=== PATIENT | male | born 1985 | race Caucasian/White ===

== ENCOUNTER 2020-06-17 17:04 | Inpatient (IN) ==
[2020-06-17] MEDS ORDERED: THIAMINE HCL 200 MG in SODIUM CHLORIDE 0.9% 50 ML IV STA (17:45)
[2020-06-17] MEDS ORDERED: PANTOprazole 40 MG TAB PO STA (17:45)
[2020-06-17] MEDS ORDERED: SODIUM CHLORIDE 0.9% 1000ML 1,000 ML IV SCH (17:45)
[2020-06-17 17:54] LABS: Basophils # (auto) 0.04 K/uL (0-0.2); Basophils % (auto) 0.6 %; Eosinophils # (auto) 0.06 K/uL (0-0.5); Eosinophils % (auto) 0.8 %; Hemoglobin 16.4 g/dL (14.0-18.0); Immature Granulocytes # (auto) 0.01 K/uL (0.00-0.02); Immature Granulocytes % (auto) 0.1 %; Lymphocytes # (auto) 2.48 K/uL (1.2-3.4); Lymphocytes % (auto) 35.1 %; Mean Corpuscular Hemoglobin 32.3 pg (25-34); Mean Corpuscular Hgb Conc 36.4 g/dL (32-36); Mean Corpuscular Volume 88.8 fL (80-100); Monocytes # (auto) 0.56 K/uL (0.11-0.59); Monocytes % (auto) 7.9 %; Neutrophils # (auto) 3.91 K/uL (1.4-6.5); Neutrophils % (auto) 55.5 %; Platelet Count 326 K/uL (130-400); RDW Coefficient of Variation 12.5 % (11.5-14.5); RDW Standard Deviation 40.1 fL (36.4-46.3); Red Blood Count 5.07 M/uL (4.7-6.1); White Blood Count 7.06 K/uL (4.8-10.8)
--- NOTE | 2020-06-17 17:54 | Emergency Department Note ---
Impression & Plan Alcohol withdrawal syndrome, Alcoholic intoxication ED Provider Note NAME: CAMILLA MARTIN AGE: 35 SEX: M : 1985 ARRIVES VIA: Walk-In INFORMANT: Patient, family member ED PROVIDER(S): Max Bull DO CHIEF COMPLAINT: Alcohol detox request HPI: The patient is a 35-year-old male who presented to the emergency department for an evaluation of alcohol detox request. The patient is a history of chronic alcoholism. The patient has had a history of drinking a significant amount of hard liquor, vodka, over the course of the last week. He does have a history of alcoholism in the past. He went through detox approximately 1 year ago. He was therefore 5 weeks and then started drinking as soon as he got out of detox. He department today with family member requesting alcohol detox. He does have significant depression as well as thoughts of suicidal ideation. He has no specific plan. He has had no nausea or vomiting. He said no trauma. He states that he is only been drinking vodka and denies any other toxic alcohol use. The patient has had no fever or cough. He denies having any recent traveling or exposure to COVID-19. ROS: See above HPI for pertinent positives & negatives. A total of 10 systems reviewed and were otherwise negative. PAST MEDICAL HISTORY: See Below PAST SURGICAL HISTORY: See Below FAMILY HISTORY: See Below SOCIAL HISTORY: See Below HOME MEDICATIONS: See Below ALLERGIES: See Below VITALS: See Below PHYSICAL EXAMINATION: GENERAL: The patient is awake and alert. He does appear somewhat intoxicated. EYES: The conjunctivae are injected bilaterally. The pupils are round and reactive. EARS, NOSE, MOUTH AND THROAT: The nose is without any evidence of any deformity. NECK: The neck is nontender and supple. RESPIRATORY: Normal respiratory effort is noted there is no evidence of wheezing rhonchi or rales CARDIOVASCULAR: Tachycardic rate with regular rhythm was noted. There was no definite murmur. GASTROINTESTINAL: The abdomen is soft. Abdomen is nontender. MUSCULOSKELETAL/EXTREMITIES: There is no evidence of gross deformity full range of motion is noted in the hips and shoulders. SKIN: There is no obvious evidence of any rash. There are no petechiae, pallor or cyanosis noted. NEUROLOGIC: Patient is awake alert and oriented x3 strength is symmetric patellar reflexes are 2+ bilaterally PSYCH: The patient makes poor eye contact for most the evaluation. His affect is flat. He is currently admitting to suicidal ideation. He keeps saying that he just wants to drink himself to . MEDICAL DECISION MAKING: The patient is a 35-year-old male who presented to the emergency department with family members for an evaluation of alcohol abuse as well as alcohol withdrawal. The patient has had a history of alcohol problems in the past. He did go through detox 1 year ago but unfortunately right back to drinking alcohol again. The patient had no focal neurologic deficits. There was no history of trauma. The patient was treated with IV fluids IV thiamine as well as Protonix in the emergency department. He was also given Ativan when he started to have some early symptoms that could be consistent with withdrawal. [facility] The patient would like to stop drinking at this time unfortunately detox is not an option. I do not feel the patient would be safe for discharge given his likelihood for either relapsing into drinking again or having withdrawal if he does not continue to hold alcohol use. He was feeling much better on subsequent reevaluation. Triage Nursing notes reviewed. Prior medical records reviewed Vital Signs: reviewed and remarkable for tachycardia. Differential diagnosis: Alcohol intoxication, toxicologic, infection, hypoglycemia, electrolyte abnormalities, cardiac sources, intracerebral event, neurologic, trauma, as well as other pathologies. ER treatment provided: See below Diagnostics interpreted by me: ECG: EKG was obtained in the emergency department. My interpretation is normal sinus rhythm at 91 bpm. There was no ectopy. There was no acute ST segment abnormalities noted. No previous tracing was available. Cardiac Monitoring: An order was placed for continuous cardiac monitoring. The monitor shows a rate of 98 bpm with sinus rhythm. Laboratory studies: As stated above and show below. Imaging studies: See below Consultation(s): I discussed this case with Dr. Carney who [facility] He will evaluate the patient in the emergency department for further management and disposition. Past Med/Surg History Medical History Alcohol abuse Social History (Updated 06/17/20 @ 17:51 by Max Bull DO) Smoking Status: Current every day smoker Tobacco Type: Cigarettes and Smokeless Tobacco (Dip or Chew) Hx Alcohol Use: Yes Alcohol type: hard liquor Alcohol Intake Frequency: 4 or More x per/Week Hx Substance Use: No Feels Safe at Home: Yes Allergies Allergies Allergy/AdvReac Type Severity Reaction Status Date / Time nut - unspecified Allergy Unknown Unverified 06/17/20 19:59 Home Meds Home Medications Medication Instructions Recorded Confirmed No Known Home Medications 06/17/20 06/17/20 Results & Data (ED) Vital Signs Vital Signs - 24 hr 06/17/20 17:08 06/17/20 17:32 06/17/20 17:47 Pulse Rate 116 H 113 H Pulse Rate from SpO2 Sensor 111 H Respiratory Rate 19 18 Blood Pressure 129/75 126/87 Blood Pressure Mean 93 100 Pulse Oximetry 95 96 Oxygen Delivery Method Room Air Room Air Sepsis Recent Fever Within 48 Hours No Sepsis New/Unexplained Change in Mental Status N/A Sepsis Action Taken by Nursing No Action Required 06/17/20 18:00 06/17/20 18:30 06/17/20 19:00 Pulse Rate 88 94 H 89 Pulse Rate from SpO2 Sensor 96 H 92 H Respiratory Rate 12 19 16 Blood Pressure 120/75 103/65 117/83 Blood Pressure Mean 95 76 98 Pulse Oximetry 95 97 Oxygen Delivery Method Sepsis Recent Fever Within 48 Hours Sepsis New/Unexplained Change in Mental Status Sepsis Action Taken by Nursing 06/17/20 19:30 06/17/20 20:18 06/17/20 20:30 Pulse Rate 102 H 105 H 108 H Pulse Rate from SpO2 Sensor 101 H 101 H 110 H Respiratory Rate 17 12 22 Blood Pressure 125/95 127/86 122/73 Blood Pressure Mean 103 102 87 Pulse Oximetry 95 93 94 Oxygen Delivery Method Room Air Room Air Sepsis Recent Fever Within 48 Hours Sepsis New/Unexplained Change in Mental Status Sepsis Action Taken by Intermediate Medications Current Medication List: was personally reviewed by me Laboratory Data Attestation: I reviewed the patient's lab results. Result diagrams: 06/17/20 17:30 06/17/20 17:30 Lab Results 06/17/20 06/17/20 06/17/20 Range/Units 17:26 17:26 17:30 WBC 7.06 (4.8-10.8) K/uL RBC 5.07 (4.7-6.1) M/uL Hgb 16.4 (14.0-18.0) g/dL Hct 45.0 (42-52) % MCV 88.8 (80-100) fL MCH 32.3 (25-34) pg MCHC 36.4 H (32-36) g/dL RDW Std Deviation 40.1 (36.4-46.3) fL RDW Coeff of Bessie 12.5 (11.5-14.5) % Plt Count 326 (130-400) K/uL MPV 9.0 (7.4-10.4) fL Immature Gran % (Auto) 0.1 % Neut % (Auto) 55.5 % Lymph % (Auto) 35.1 % [place] % (Auto) 7.9 % Eos % (Auto) 0.8 % Baso % (Auto) 0.6 % Neut # (Auto) 3.91 (1.4-6.5) K/uL Lymph # (Auto) 2.48 (1.2-3.4) K/uL [place] # (Auto) 0.56 (0.11-0.59) K/uL Eos # (Auto) 0.06 (0-0.5) K/uL Baso # (Auto) 0.04 (0-0.2) K/uL Immature Gran # (Auto) 0.01 (0.00-0.02) K/uL PT (9.0-12.0) Seconds INR (0.9-1.1) APTT (21.0-31.0) Seconds PTT Ratio Sodium (136-145) mmol/L Potassium (3.5-5.1) mmol/L Chloride (98-107) mmol/L Carbon Dioxide (21-32) mmol/L Anion Gap (3-11) BUN (7-18) mg/dl Creatinine (0.6-1.4) mg/dl Est Cr Clr Drug Dosing Est GFR ( Amer) Est GFR (Non-Af Amer) BUN/Creatinine Ratio (10-20) Glucose (70-99) mg/dl Osmolality (280-300) mOsm/kg Calcium (8.5-10.1) mg/dl Magnesium (1.8-2.4) mg/dl Total Bilirubin (0.2-1) mg/dl AST (15-37) U/L ALT (12-78) U/L Alkaline Phosphatase (45-117) U/L Troponin I (0-0.045) ng/ml Total Protein (6.4-8.2) gm/dl Albumin (3.4-5.0) gm/dl Globulin (2.5-4.0) gm/dl Albumin/Globulin Ratio (0.9-2) Lipase (73-393) U/L Urine Color [place] Urine Appearance Clear (Clear) Urine pH 6.0 (4.5-7.5) Ur Specific [place] 1.017 (1.000-1.030) Urine Protein Trace H (Negative) Urine Glucose (UA) Negative (Negative) Urine Ketones Trace H (Negative) Urine Blood Trace H (Negative) Urine Nitrite Negative (Negative) Urine Bilirubin Negative (Negative) Urine Urobilinogen Negative (Negative) Ur Leukocyte Esterase Negative (Negative) Urine WBC (Auto) 1-5 (0-5) /hpf Urine RBC (Auto) 0-4 (0-4) /hpf U Hyaline Cast (Auto) 0 (0-5) /lpf U Epithel Cells (Auto) 0-5 (0-5) /lpf Urine Bacteria (Auto) Negative (Negative) Salicylates (2.8-20) mg/dl Urine Opiates Screen Neg (Neg) Ur Methadone, Qual Neg (Neg) Acetaminophen (10-30) ug/ml Urine Barbiturates Neg (Neg) Ur Phencyclidine (PCP) Neg (Neg) U Amphetamin/Meth Scrn Neg (Neg) MDMA (Ecstasy) Screen Neg (Neg) U Benzodiazepines Scrn Neg (Neg) Ur Cocaine Metabolite Neg (Neg) U Marijuana (THC) Screen Neg (Neg) Ethyl Alcohol mg/dL (0-3) mg/dl COVID-19 Eval Order SARS-CoV-2, RNA, NAAT (NEGATIVE) 06/17/20 06/17/20 06/17/20 Range/Units 17:30 17:30 17:30 WBC (4.8-10.8) K/uL RBC (4.7-6.1) M/uL Hgb (14.0-18.0) g/dL Hct (42-52) % MCV (80-100) fL MCH (25-34) pg MCHC (32-36) g/dL RDW Std Deviation (36.4-46.3) fL RDW Coeff of Bessie (11.5-14.5) % Plt Count (130-400) K/uL MPV (7.4-10.4) fL Immature Gran % (Auto) % Neut % (Auto) % Lymph % (Auto) % [place] % (Auto) % Eos % (Auto) % Baso % (Auto) % Neut # (Auto) (1.4-6.5) K/uL Lymph # (Auto) (1.2-3.4) K/uL [place] # (Auto) (0.11-0.59) K/uL Eos # (Auto) (0-0.5) K/uL Baso # (Auto) (0-0.2) K/uL Immature Gran # (Auto) (0.00-0.02) K/uL PT 10.3 (9.0-12.0) Seconds INR 1.0 (0.9-1.1) APTT 25.8 (21.0-31.0) Seconds PTT Ratio 0.9 Sodium 137 (136-145) mmol/L Potassium 4.3 (3.5-5.1) mmol/L Chloride 99 (98-107) mmol/L Carbon Dioxide 30 (21-32) mmol/L Anion Gap 8.0 (3-11) BUN 16 (7-18) mg/dl Creatinine 0.94 (0.6-1.4) mg/dl Est Cr Clr Drug Dosing Not Reportable Est GFR ( Amer) 123.0 Est GFR (Non-Af Amer) 106.1 BUN/Creatinine Ratio 16.7 (10-20) Glucose 80 (70-99) mg/dl Osmolality (280-300) mOsm/kg Calcium 8.6 (8.5-10.1) mg/dl Magnesium 2.5 H (1.8-2.4) mg/dl Total Bilirubin 1.0 (0.2-1) mg/dl AST 51 H (15-37) U/L ALT 48 (12-78) U/L Alkaline Phosphatase 73 (45-117) U/L Troponin I < 0.015 (0-0.045) ng/ml Total Protein 8.2 (6.4-8.2) gm/dl Albumin 4.4 (3.4-5.0) gm/dl Globulin 3.8 (2.5-4.0) gm/dl Albumin/Globulin Ratio 1.2 (0.9-2) Lipase 125 (73-393) U/L Urine Color Urine Appearance (Clear) Urine pH (4.5-7.5) Ur Specific [place] (1.000-1.030) Urine Protein (Negative) Urine Glucose (UA) (Negative) Urine Ketones (Negative) Urine Blood (Negative) Urine Nitrite (Negative) Urine Bilirubin (Negative) Urine Urobilinogen (Negative) Ur Leukocyte Esterase (Negative) Urine WBC (Auto) (0-5) /hpf Urine RBC (Auto) (0-4) /hpf U Hyaline Cast (Auto) (0-5) /lpf U Epithel Cells (Auto) (0-5) /lpf Urine Bacteria (Auto) (Negative) Salicylates < 1.7 L (2.8-20) mg/dl Urine Opiates Screen (Neg) Ur Methadone, Qual (Neg) Acetaminophen < 2 L (10-30) ug/ml Urine Barbiturates (Neg) Ur Phencyclidine (PCP) (Neg) U Amphetamin/Meth Scrn (Neg) MDMA (Ecstasy) Screen (Neg) U Benzodiazepines Scrn (Neg) Ur Cocaine Metabolite (Neg) U Marijuana (THC) Screen (Neg) Ethyl Alcohol mg/dL (0-3) mg/dl COVID-19 Eval Order SARS-CoV-2, RNA, NAAT (NEGATIVE) 06/17/20 06/17/20 06/17/20 Range/Units 17:30 17:59 18:20 WBC (4.8-10.8) K/uL RBC (4.7-6.1) M/uL Hgb (14.0-18.0) g/dL Hct (42-52) % MCV (80-100) fL MCH (25-34) pg MCHC (32-36) g/dL RDW Std Deviation (36.4-46.3) fL RDW Coeff of Bessie (11.5-14.5) % Plt Count (130-400) K/uL MPV (7.4-10.4) fL Immature Gran % (Auto) % Neut % (Auto) % Lymph % (Auto) % [place] % (Auto) % Eos % (Auto) % Baso % (Auto) % Neut # (Auto) (1.4-6.5) K/uL Lymph # (Auto) (1.2-3.4) K/uL [place] # (Auto) (0.11-0.59) K/uL Eos # (Auto) (0-0.5) K/uL Baso # (Auto) (0-0.2) K/uL Immature Gran # (Auto) (0.00-0.02) K/uL PT (9.0-12.0) Seconds INR (0.9-1.1) APTT (21.0-31.0) Seconds PTT Ratio Sodium (136-145) mmol/L Potassium (3.5-5.1) mmol/L Chloride (98-107) mmol/L Carbon Dioxide (21-32) mmol/L Anion Gap (3-11) BUN (7-18) mg/dl Creatinine (0.6-1.4) mg/dl Est Cr Clr Drug Dosing Est GFR ( Amer) Est GFR (Non-Af Amer) BUN/Creatinine Ratio (10-20) Glucose (70-99) mg/dl Osmolality 381 H* (280-300) mOsm/kg Calcium (8.5-10.1) mg/dl Magnesium (1.8-2.4) mg/dl Total Bilirubin (0.2-1) mg/dl AST (15-37) U/L ALT (12-78) U/L Alkaline Phosphatase (45-117) U/L Troponin I (0-0.045) ng/ml Total Protein (6.4-8.2) gm/dl Albumin (3.4-5.0) gm/dl Globulin (2.5-4.0) gm/dl Albumin/Globulin Ratio (0.9-2) Lipase (73-393) U/L Urine Color Urine Appearance (Clear) Urine pH (4.5-7.5) Ur Specific [place] (1.000-1.030) Urine Protein (Negative) Urine Glucose (UA) (Negative) Urine Ketones (Negative) Urine Blood (Negative) Urine Nitrite (Negative) Urine Bilirubin (Negative) Urine Urobilinogen (Negative) Ur Leukocyte Esterase (Negative) Urine WBC (Auto) (0-5) /hpf Urine RBC (Auto) (0-4) /hpf U Hyaline Cast (Auto) (0-5) /lpf U Epithel Cells (Auto) (0-5) /lpf Urine Bacteria (Auto) (Negative) Salicylates (2.8-20) mg/dl Urine Opiates Screen (Neg) Ur Methadone, Qual (Neg) Acetaminophen (10-30) ug/ml Urine Barbiturates (Neg) Ur Phencyclidine (PCP) (Neg) U Amphetamin/Meth Scrn (Neg) MDMA (Ecstasy) Screen (Neg) U Benzodiazepines Scrn (Neg) Ur Cocaine Metabolite (Neg) U Marijuana (THC) Screen (Neg) Ethyl Alcohol mg/dL 344.9 H (0-3) mg/dl COVID-19 Eval [id number] SARS-CoV-2, RNA, NAAT (NEGATIVE) 06/17/20 Range/Units 18:20 WBC (4.8-10.8) K/uL RBC (4.7-6.1) M/uL Hgb (14.0-18.0) g/dL Hct (42-52) % MCV (80-100) fL MCH (25-34) pg MCHC (32-36) g/dL RDW Std Deviation (36.4-46.3) fL RDW Coeff of Bessie (11.5-14.5) % Plt Count (130-400) K/uL MPV (7.4-10.4) fL Immature Gran % (Auto) % Neut % (Auto) % Lymph % (Auto) % [place] % (Auto) % Eos % (Auto) % Baso % (Auto) % Neut # (Auto) (1.4-6.5) K/uL Lymph # (Auto) (1.2-3.4) K/uL [place] # (Auto) (0.11-0.59) K/uL Eos # (Auto) (0-0.5) K/uL Baso # (Auto) (0-0.2) K/uL Immature Gran # (Auto) (0.00-0.02) K/uL PT (9.0-12.0) Seconds INR (0.9-1.1) APTT (21.0-31.0) Seconds PTT Ratio Sodium (136-145) mmol/L Potassium (3.5-5.1) mmol/L Chloride (98-107) mmol/L Carbon Dioxide (21-32) mmol/L Anion Gap (3-11) BUN (7-18) mg/dl Creatinine (0.6-1.4) mg/dl Est Cr Clr Drug Dosing Est GFR ( Amer) Est GFR (Non-Af Amer) BUN/Creatinine Ratio (10-20) Glucose (70-99) mg/dl Osmolality (280-300) mOsm/kg Calcium (8.5-10.1) mg/dl Magnesium (1.8-2.4) mg/dl Total Bilirubin (0.2-1) mg/dl AST (15-37) U/L ALT (12-78) U/L Alkaline Phosphatase (45-117) U/L Troponin I (0-0.045) ng/ml Total Protein (6.4-8.2) gm/dl Albumin (3.4-5.0) gm/dl Globulin (2.5-4.0) gm/dl Albumin/Globulin Ratio (0.9-2) Lipase (73-393) U/L Urine Color Urine Appearance (Clear) Urine pH (4.5-7.5) Ur Specific [place] (1.000-1.030) Urine Protein (Negative) Urine Glucose (UA) (Negative) Urine Ketones (Negative) Urine Blood (Negative) Urine Nitrite (Negative) Urine Bilirubin (Negative) Urine Urobilinogen (Negative) Ur Leukocyte Esterase (Negative) Urine WBC (Auto) (0-5) /hpf Urine RBC (Auto) (0-4) /hpf U Hyaline Cast (Auto) (0-5) /lpf U Epithel Cells (Auto) (0-5) /lpf Urine Bacteria (Auto) (Negative) Salicylates (2.8-20) mg/dl Urine Opiates Screen (Neg) Ur Methadone, Qual (Neg) Acetaminophen (10-30) ug/ml Urine Barbiturates (Neg) Ur Phencyclidine (PCP) (Neg) U Amphetamin/Meth Scrn (Neg) MDMA (Ecstasy) Screen (Neg) U Benzodiazepines Scrn (Neg) Ur Cocaine Metabolite (Neg) U Marijuana (THC) Screen (Neg) Ethyl Alcohol mg/dL (0-3) mg/dl COVID-19 Eval Order SARS-CoV-2, RNA, NAAT NEGATIVE (NEGATIVE) Administered Medications Discontinued Medications Sodium Chloride (Nss 1000ml) 1,000 mls @ 999 mls/hr IV [id number] MATHEUS Stop: 06/17/20 18:45 Last Infusion: 06/17/20 19:00 Dose: 0 mls/hr Documented by: [id number] Admin: 06/17/20 18:00 Dose: 999 mls/hr Documented by: [id number] Thiamine HCl 200 mg/ Sodium (Chloride) 52 mls @ 208 mls/hr IV NOW STA Stop: 06/17/20 17:59 Last Infusion: 06/17/20 18:31 Dose: 0 mls/hr Documented by: [id number] Admin: 06/17/20 18:15 Dose: 208 mls/hr Documented by: [id number] Lorazepam (Ativan) 1 mg in 2 mls @ 2 mls/min IV NOW STA Stop: 06/17/20 19:02 Last Admin: 06/17/20 19:09 Dose: 2 mls/min Documented by: [id number] Pantoprazole Sodium (Pantoprazole 40 Mg Tab) 40 mg PO NOW STA Stop: 06/17/20 17:46 Last Admin: 06/17/20 18:10 Dose: 40 mg Documented by: [id number] Blood Pressure Blood Pressure Findings: Normal blood pressure Discharge Plan Visit Data Chief Complaint: Detox Request Stated Complaint: alcohol intoxication, detox ED Provider: Max Bull Discharge Problem: Alcohol withdrawal syndrome, Alcoholic intoxication Patient Disposition: Being Evaluated by Hospitalist Condition: Good Forms Stand Alone Forms: [facility] [employer], Suicide Prevention Resources Prescriptions Prescriptions: No Action No Known Home Medications RF: 0 Referrals Referrals: PCP,NO [Primary Care Provider] -
[2020-06-17 17:59] LABS: Partial Thromboplastin Ratio 0.9; Partial Thromboplastin Time 25.8 Seconds (21.0-31.0); Prothrombin Time 10.3 Seconds (9.0-12.0)
[2020-06-17 18:02] LABS: Blood Urea Nitrogen 16 mg/dl (7-18); Carbon Dioxide 30 mmol/L (21-32); Chloride 99 mmol/L (98-107); Potassium 4.3 mmol/L (3.5-5.1); Sodium 137 mmol/L (136-145)
[2020-06-17 18:03] LABS: Alanine Aminotransferase 48 U/L (12-78); Albumin Level 4.4 gm/dl (3.4-5.0); Aspartate Aminotransferase 51 U/L (15-37); BUN Creatinine Ratio 16.7 (10-20); Calcium 8.6 mg/dl (8.5-10.1); Est GFR (Non-African American) 106.1; Glucose 80 mg/dl (70-99); Lipase 125 U/L (73-393); Magnesium 2.5 mg/dl (1.8-2.4)
[2020-06-17 18:08] LABS: Albumin Globulin Ratio 1.2 (0.9-2); Alkaline Phosphatase 73 U/L (45-117); Globulin 3.8 gm/dl (2.5-4.0); Total Protein 8.2 gm/dl (6.4-8.2); Troponin I < 0.015 ng/ml (0-0.045)
[2020-06-17 18:21] LABS: Acetaminophen < 2 ug/ml (10-30); Salicylate < 1.7 mg/dl (2.8-20)
[2020-06-17 18:44] LABS: Appearance Urine Clear (Clear); Bacteria Urine Automated Negative (Negative); Bilirubin Urine Negative (Negative); Blood Urine Trace (Negative); Cast Urine Automated 0 /lpf (0-5); Color Urine Orange; Epithelial Cell Urine Auto 0-5 /lpf (0-5); Glucose Urine UA Negative (Negative); Ketones Urine Trace (Negative); Leukocyte Esterase Urine Negative (Negative); Nitrite Urine Negative (Negative); Protein Urine Trace (Negative); RBC Urine Automated 0-4 /hpf (0-4); Specific Gravity Urine 1.017 (1.000-1.030); Urobilinogen Urine Negative (Negative)
[2020-06-17 18:59] LABS: Amphetamines+Metham, Urine Neg (Neg); Barbiturates, Urine Neg (Neg); Benzodiazepine, Urine Neg (Neg); Cocaine, Urine Neg (Neg); MDMA (Ecstacy), Urine Neg (Neg); Methadone, Urine Neg (Neg); Opiate, Urine Neg (Neg); Phencyclidine, Urine Neg (Neg)
[2020-06-17] MEDS ORDERED: LORazepam 1 MG/2 ML VIAL IV STA (19:01)
[2020-06-17] MEDS ORDERED: GABAPENTIN 600 MG TAB PO ONE (22:10)
[2020-06-17] MEDS ORDERED: LORazepam 3 MG/6 ML VIAL IV PRN (22:10)
[2020-06-17] MEDS ORDERED: LORazepam 1 MG/2 ML VIAL IV PRN (22:10)
[2020-06-17] MEDS ORDERED: ONDANSETRON INJ 2 MG/ML 2 ML VIAL IV PRN (22:10)
[2020-06-17] MEDS ORDERED: LORazepam 2 MG/4 ML VIAL IV PRN (22:10)
[2020-06-17] MEDS ORDERED: ACETAMINOPHEN 325 MG TAB PO PRN (22:10)
[2020-06-17] MEDS ORDERED: GABAPENTIN 1200MG ALCOHOL WITHDRAWAL LOAD PO STA (22:10)
[2020-06-17] MEDS ORDERED: ATIVAN IV ALCOHOL WITHDRAWL IV PRN (22:10)
[2020-06-17] MEDS: SODIUM CHLORIDE 0.9% 1000ML 1,000 ML IV SCH (22:13)
[2020-06-17 22:29] LABS: Phosphorus 3.4 mg/dl (2.5-4.9)
[2020-06-17] MEDS: THIAMINE HCL 100 MG TAB PO SCH (22:52)
[2020-06-17] MEDS: FOLIC ACID 1 MG TAB PO SCH (22:53)
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
[2020-06-18] MEDS: GABAPENTIN 600 MG TAB PO SCH ×3 (03:22→21:34)
[2020-06-18] MEDS: SODIUM CHLORIDE 0.9% 1000ML 1,000 ML IV SCH ×2 (06:25→13:21)
[2020-06-18 07:42] LABS: Basophils # (auto) 0.03 K/uL (0-0.2); Basophils % (auto) 0.5 %; Eosinophils # (auto) 0.16 K/uL (0-0.5); Eosinophils % (auto) 2.4 %; Hematocrit (blood only) 38.6 % (42-52); Hemoglobin 13.8 g/dL (14.0-18.0); Immature Granulocytes # (auto) 0.01 K/uL (0.00-0.02); Immature Granulocytes % (auto) 0.2 %; Lymphocytes # (auto) 1.39 K/uL (1.2-3.4); Mean Corpuscular Hemoglobin 32.2 pg (25-34); Mean Corpuscular Hgb Conc 35.8 g/dL (32-36); Mean Platelet Volume 9.1 fL (7.4-10.4); Monocytes # (auto) 0.56 K/uL (0.11-0.59); Monocytes % (auto) 8.4 %; Neutrophils # (auto) 4.48 K/uL (1.4-6.5); Neutrophils % (auto) 67.5 %; Platelet Count 239 K/uL (130-400); RDW Coefficient of Variation 12.7 % (11.5-14.5); RDW Standard Deviation 41.7 fL (36.4-46.3); Red Blood Count 4.29 M/uL (4.7-6.1); White Blood Count 6.63 K/uL (4.8-10.8)
[2020-06-18 08:16] LABS: Albumin Level 3.6 gm/dl (3.4-5.0); BUN Creatinine Ratio 18.3 (10-20); Calcium 8.4 mg/dl (8.5-10.1); Est GFR (African American) 110.1; Magnesium 2.1 mg/dl (1.8-2.4); Potassium 4.2 mmol/L (3.5-5.1)
[2020-06-18 08:23] LABS: Albumin Globulin Ratio 1.2 (0.9-2); Globulin 2.9 gm/dl (2.5-4.0); Phosphorus 1.8 mg/dl (2.5-4.9); Total Protein 6.5 gm/dl (6.4-8.2)
[2020-06-18] MEDS ORDERED: POTASSIUM PHOS 3 MMOL/1 ML INFUSION IV STA (09:00)
[2020-06-18] MEDS: FOLIC ACID 1 MG TAB PO SCH (09:36)
[2020-06-18] MEDS: THIAMINE HCL 100 MG TAB PO SCH (09:36)
[2020-06-18] MEDS: NEPHROCAPS PO SCH (09:36)
[2020-06-18] MEDS ORDERED: POTASSIUM PHOSPHATE 15 MMOL in SODIUM CHLORIDE 0.9% 250 ML IV ONE (09:45)
--- NOTE | 2020-06-18 11:09 | Electrocardiogram Report ---
Test Reason : Blood Pressure : / mmHG Vent. Rate : 091 BPM Atrial Rate : 091 BPM P-R Int : 140 ms QRS Dur : 094 ms QT Int : 360 ms P-R-T Axes : 057 066 036 degrees QTc Int : 442 ms Normal sinus rhythm Normal ECG No previous ECGs available Confirmed by Diomedes Dean ([id number]) on 06/18/2020 11:09:23 AM Referred By: REFERRED SELF Confirmed By:Diomedes Dean
--- NOTE | 2020-06-18 13:55 | Hospitalist Progress Note ---
Date of Service June 18, 2020 Assessment & Plan (1) Chronic alcoholism: Chronic alcoholism, alcohol intoxication, alcohol withdrawal syndrome- Admit to monitored bed. AWSS protocol with gabapentin orally and lorazepam IV. Thiamine 100 mg p.o. daily Nephrocaps 1 p.o. twice daily folic acid 1 mg p.o. daily NSS at 100 mils per hour Follow serial CBC with differential, chemistry profile and serum osmolality. Pt states he is having difficulty maintaining sobriety because all of his friend s "live that lifestyle" so he would have to "completely isolate" to not be around alcohol. States last alcohol was 06/17 around 5-6pm Pt is interested in inpt rehab but unsure of which facility. (2) Alcohol withdrawal syndrome: See above (3) Alcoholic intoxication: See above (4) Hypophosphatemia: Replace and monitor Admission and Anticipated Discharge Date Admission Date: June 17, 2020 Subjective Pt states he feels ok at this point. He states that his withdrawal issues are mostly intense anxiety and hallucinations and usually not for about 2 days after he stops drinking. He has never had a seizure. Tolerating PO without issue. Pt denies fever, SOB, chest pain, abd pain, n/v/c/d, LE pain or swelling. Pt states he is having difficulty maintaining sobriety because all of his friends "live that lifestyle" so he would have to "completely isolate" to not be around alcohol. Review of Systems Review of Systems: Pertinent positives and negatives reviewed in HPI--all others negative Physical Exam Constitutional: WD/WN, vitals as above Eyes: normal visual siddiqui by confrontation and + anicteric sclerae Neck: normal visual inspection and trachea midline Respiratory: normal respiratory effort, lungs clear to auscultation Cardiovascular: Rate/Rhythm: regular rate and regular rhythm Gastrointestinal (Abdomen): Inspection/Auscultation: abdomen not distended Percussion/Palpation: abdomen soft; abdomen nontender Musculoskeletal: Head/Neck/Chest: normocephalic and head atraumatic negative for edema, peripheral pulses intact Skin: no rashes, warm and dry Neurologic: awake; not confused Speech / Cognition: normal speech Psychiatric: A+Ox3, euthymic affect Results & Data Results & Data ([facility]) Vital Signs (Past 12 Hours) Vital Signs Temp Pulse Pulse Resp BP Pulse Ox 06/18/20 12:17 37.2 C 99 H 18 123/80 95 06/18/20 09:11 99 H 06/18/20 07:23 36.7 C 114 H 14 138/82 96 06/18/20 04:10 37.4 C 96 H 14 110/69 96 PG Care Time/CCT Total # of Minutes Spent Total Time Spent with Patient: Total time spent is greater than 50% in coordination of care (as documented) at patient's floor/unit and/or counseling patient: Coding Level of Care Code 93380 Subseq Hosp Care Lvl 3 Diagnoses Chronic alcoholism F10.20 Alcohol withdrawal syndrome F10.230 Complication of substance-induced condition: uncomplicated Alcoholic intoxication F10.920 Complication of substance-induced condition: uncomplicated Hypophosphatemia E83.39 (1) Alcohol withdrawal syndrome Complication of substance-induced condition: uncomplicated Qualified Code(s): F10.230 - Alcohol dependence with withdrawal, uncomplicated (2) Alcoholic intoxication Complication of substance-induced condition: uncomplicated Qualified Code(s): F10.920 - Alcohol use, unspecified with intoxication, uncomplicated
[2020-06-19] MEDS: SODIUM CHLORIDE 0.9% 1000ML 1,000 ML IV SCH (03:58)
[2020-06-19] MEDS: GABAPENTIN 600 MG TAB PO SCH ×3 (04:30→23:59)
[2020-06-19 07:14] LABS: Basophils # (auto) 0.02 K/uL (0-0.2); Basophils % (auto) 0.4 %; Eosinophils % (auto) 5.6 %; Hematocrit (blood only) 39.4 % (42-52); Hemoglobin 13.5 g/dL (14.0-18.0); Immature Granulocytes # (auto) 0.01 K/uL (0.00-0.02); Immature Granulocytes % (auto) 0.2 %; Lymphocytes # (auto) 1.42 K/uL (1.2-3.4); Lymphocytes % (auto) 26.3 %; Mean Corpuscular Hemoglobin 31.5 pg (25-34); Mean Corpuscular Hgb Conc 34.3 g/dL (32-36); Mean Corpuscular Volume 91.8 fL (80-100); Mean Platelet Volume 9.3 fL (7.4-10.4); Monocytes # (auto) 0.36 K/uL (0.11-0.59); Monocytes % (auto) 6.7 %; Neutrophils # (auto) 3.29 K/uL (1.4-6.5); Neutrophils % (auto) 60.8 %; Platelet Count 160 K/uL (130-400); RDW Coefficient of Variation 12.7 % (11.5-14.5); RDW Standard Deviation 42.5 fL (36.4-46.3); Red Blood Count 4.29 M/uL (4.7-6.1)
[2020-06-19] MEDS: THIAMINE HCL 100 MG TAB PO SCH (07:31)
[2020-06-19] MEDS: FOLIC ACID 1 MG TAB PO SCH (07:32)
[2020-06-19] MEDS: NEPHROCAPS PO SCH (07:32)
[2020-06-19 07:45] LABS: Albumin Level 3.3 gm/dl (3.4-5.0); Calcium 8.5 mg/dl (8.5-10.1); Creatinine Clr Calc Pharmacy 132.6 ml/min; Est GFR (African American) 131.4; Est GFR (Non-African American) 113.4; Magnesium 2.1 mg/dl (1.8-2.4); Potassium 4.2 mmol/L (3.5-5.1)
[2020-06-19 07:50] LABS: Albumin Globulin Ratio 1.1 (0.9-2); Bilirubin,Total 1.5 mg/dl (0.2-1); Phosphorus 2.8 mg/dl (2.5-4.9); Total Protein 6.3 gm/dl (6.4-8.2)
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
--- NOTE | 2020-06-19 18:12 | Hospitalist Progress Note ---
Date of Service June 19, 2020 Assessment & Plan (1) Chronic alcoholism: Chronic alcoholism, alcohol intoxication, alcohol withdrawal syndrome- Last drink 06/17 in the evening. Has a h/o EtOH withdrawal symptoms of anxiety, sweats, but no seizure history Doing ok so far Continue AWSS protocol with gabapentin orally and lorazepam IV prn Continue Thiamine 100 mg p.o. daily Nephrocaps 1 p.o. twice daily folic acid 1 mg p.o. daily dc IVFs Pt states he is having difficulty maintaining sobriety because all of his friends "live that lifestyle" so he would have to "completely isolate" to not be around alcohol. Plan for dc to EtOH rehab facility once medically cleared-likely Wed (2) Alcohol withdrawal syndrome: See above (3) Alcoholic intoxication: See above (4) Hypophosphatemia: Replaced (5) Alcoholic hepatitis: LFTs elevated moreso than previous Should improve with EtOH cessation -follow LFs in AM encouraged EtOH cessation (6) DVT prophylaxis: Ambulation Dispo-continued stay, transferred off PCU to [facility]-tele Admission and Anticipated Discharge Date Admission Date: June 17, 2020 Subjective Having some anxiety, sweats at night, but denies halluincations, tremor. No nausea, no other concerns. has chosen a rehab facility for EtOH rehab after medically cleared. Denies SI, thinks when he came in, he may have made statements such as he may be better off if he continues to drink as heavily as he was. But does not actively have thoughts of suicide. I discussed his care with Psychiatry, Dr. Huston. Tele-no events, sinus rhythm Review of Systems Review of Systems: All systems reviewed & are unremarkable except as noted in HPI & below Physical Exam Constitutional: WD/WN, vitals as above Eyes: + anicteric sclerae Neck: trachea midline, no thyromegaly Respiratory: normal respiratory effort, lungs clear to auscultation Cardiovascular: RRR, no murmur, no edema Chest (Breasts): Chest: normal inspection of chest Gastrointestinal (Abdomen): normal bowel sounds, soft, nontender, no hepatosplenomegaly Musculoskeletal: Extremities: extremities normal to inspection; no cyanosis and no clubbing Skin: no rashes, warm and dry Neurologic: moves all extremities and awake; no focal motor deficits Psychiatric: A+Ox3, euthymic affect Lymphatic: no lymphedema Results & Data Results & Data ([facility]) Vital Signs (Past 12 Hours) Vital Signs Temp Pulse Pulse Resp BP BP Pulse Ox 06/19/20 13:25 36.8 C 93 H 16 126/87 95 06/19/20 13:23 96 H 06/19/20 12:05 36.7 C 90 17 136/82 97 06/19/20 07:49 36.9 C 74 17 133/83 97 06/19/20 07:17 72 Laboratory Results 06/19/20 06/19/20 06/19/20 Range/Units 06:52 06:52 06:52 WBC 5.40 (4.8-10.8) K/uL RBC 4.29 L (4.7-6.1) M/uL Hgb 13.5 L (14.0-18.0) g/dL Hct 39.4 L (42-52) % MCV 91.8 (80-100) fL MCH 31.5 (25-34) pg MCHC 34.3 (32-36) g/dL RDW Std Deviation 42.5 (36.4-46.3) fL RDW Coeff of Bessie 12.7 (11.5-14.5) % Plt Count 160 (130-400) K/uL MPV 9.3 (7.4-10.4) fL Immature Gran % (Auto) 0.2 % Neut % (Auto) 60.8 % Lymph % (Auto) 26.3 % [place] % (Auto) 6.7 % Eos % (Auto) 5.6 % Baso % (Auto) 0.4 % Neut # (Auto) 3.29 (1.4-6.5) K/uL Lymph # (Auto) 1.42 (1.2-3.4) K/uL [place] # (Auto) 0.36 (0.11-0.59) K/uL Eos # (Auto) 0.30 (0-0.5) K/uL Baso # (Auto) 0.02 (0-0.2) K/uL Immature Gran # (Auto) 0.01 (0.00-0.02) K/uL Sodium 139 (136-145) mmol/L Potassium 4.2 (3.5-5.1) mmol/L Chloride 104 (98-107) mmol/L Carbon Dioxide 32 (21-32) mmol/L Anion Gap 3.0 (3-11) BUN 15 (7-18) mg/dl Creatinine 0.87 (0.6-1.4) mg/dl Est Cr Clr Drug Dosing 132.6 ml/min Est GFR ( Amer) 131.4 Est GFR (Non-Af Amer) 113.4 BUN/Creatinine Ratio 17.0 (10-20) Glucose 94 (70-99) mg/dl Osmolality 289 (280-300) mOsm/kg Calcium 8.5 (8.5-10.1) mg/dl Phosphorus 2.8 D (2.5-4.9) mg/dl Magnesium 2.1 (1.8-2.4) mg/dl Total Bilirubin 1.5 H (0.2-1) mg/dl AST 92 H (15-37) U/L ALT 80 H (12-78) U/L Alkaline Phosphatase 71 (45-117) U/L Total Protein 6.3 L (6.4-8.2) gm/dl Albumin 3.3 L (3.4-5.0) gm/dl Globulin 3.0 (2.5-4.0) gm/dl Albumin/Globulin Ratio 1.1 (0.9-2) PG Care Time/CCT Total # of Minutes Spent Total Time Spent with Patient: Total time spent is greater than 50% in coordination of care (as documented) at patient's floor/unit and/or counseling patient: Coding Level of Care Code 78514 Subseq Hosp Care Lvl 2 Diagnoses Chronic alcoholism F10.20 Alcohol withdrawal syndrome F10.230 Complication of substance-induced condition: uncomplicated Alcoholic intoxication F10.920 Complication of substance-induced condition: uncomplicated Hypophosphatemia E83.39 Alcoholic hepatitis K70.10 DVT prophylaxis Z29.9 (1) Alcohol withdrawal syndrome Complication of substance-induced condition: uncomplicated Qualified Code(s): F10.230 - Alcohol dependence with withdrawal, uncomplicated (2) Alcoholic intoxication Complication of substance-induced condition: uncomplicated Qualified Code(s): F10.920 - Alcohol use, unspecified with intoxication, uncomplicated
[2020-06-20 07:38] LABS: Basophils # (auto) 0.02 K/uL (0-0.2); Basophils % (auto) 0.3 %; Eosinophils # (auto) 0.43 K/uL (0-0.5); Eosinophils % (auto) 7.2 %; Hematocrit (blood only) 40.1 % (42-52); Immature Granulocytes # (auto) 0.01 K/uL (0.00-0.02); Immature Granulocytes % (auto) 0.2 %; Lymphocytes # (auto) 1.64 K/uL (1.2-3.4); Lymphocytes % (auto) 27.4 %; Mean Corpuscular Hemoglobin 32.2 pg (25-34); Mean Corpuscular Hgb Conc 34.9 g/dL (32-36); Mean Corpuscular Volume 92.2 fL (80-100); Mean Platelet Volume 9.7 fL (7.4-10.4); Monocytes # (auto) 0.67 K/uL (0.11-0.59); Monocytes % (auto) 11.2 %; Neutrophils # (auto) 3.21 K/uL (1.4-6.5); Neutrophils % (auto) 53.7 %; Platelet Count 161 K/uL (130-400); RDW Standard Deviation 44.2 fL (36.4-46.3); Red Blood Count 4.35 M/uL (4.7-6.1); White Blood Count 5.98 K/uL (4.8-10.8)
[2020-06-20 08:07] LABS: Albumin Level 3.4 gm/dl (3.4-5.0); BUN Creatinine Ratio 13.5 (10-20); Creatinine Clr Calc Pharmacy 134.1 ml/min; Est GFR (African American) 132.1; Est GFR (Non-African American) 113.9; Potassium 4.2 mmol/L (3.5-5.1)
[2020-06-20] MEDS: NEPHROCAPS PO SCH (08:12)
[2020-06-20] MEDS: FOLIC ACID 1 MG TAB PO SCH (08:12)
[2020-06-20] MEDS: THIAMINE HCL 100 MG TAB PO SCH (08:12)
[2020-06-20 08:20] LABS: Bilirubin,Total 0.7 mg/dl (0.2-1); Globulin 3.3 gm/dl (2.5-4.0); Phosphorus 3.4 mg/dl (2.5-4.9); Total Protein 6.7 gm/dl (6.4-8.2)
--- NOTE | 2020-06-20 11:53 | Ultrasound Report ---
US liver CLINICAL HISTORY: elevated LFTs,EtOH abuse COMPARISON STUDY: No previous studies for comparison. FINDINGS: The liver is slightly echogenic. No hepatic lesions are identified. Liver is not cirrhotic by sonography. There is no biliary ductal dilatation. The common bile duct measures 4 mm in caliber. The gallbladder is normal. Pancreatic body is normal. Head and tail are partially obscured. There is no right hydronephrosis. IMPRESSION: Slight increased hepatic echogenicity. This may reflect fatty infiltration. Otherwise, unremarkable r ight upper quadrant ultrasound. ACT 112: Negative or not required by law. Electronically signed by: Royal Wahl M.D. 06/20/2020 11:52 AM
[2020-06-20] MEDS: GABAPENTIN 600 MG TAB PO SCH (12:05)
--- NOTE | 2020-06-20 15:36 | Hospitalist Progress Note ---
Date of Service June 20, 2020 Assessment & Plan (1) Chronic alcoholism: Chronic alcoholism, alcohol intoxication, alcohol withdrawal syndrome- Last drink 06/17 in the evening. Has a h/o EtOH withdrawal symptoms of anxiety, sweats, but no seizure history Doing well, no signs of withdrawal, just some m ild anxiety Continue AWSS protocol with gabapentin orally and lorazepam change to po, remove from tele and can take out IV as per pt's request-I do not foresee we will need it Continue Thiamine 100 mg p.o. daily Nephrocaps 1 p.o. twice daily folic acid 1 mg p.o. daily Plan for dc to EtOH rehab facility once medically cleared-likely Wed-plans in place and family will transport (2) Alcohol withdrawal syndrome: See above (3) Alcoholic intoxication: See above, now resolved (4) Hypophosphatemia: Replaced (5) Alcoholic hepatitis: LFTs elevated -TBili now normal, AST and ALT up slightly--> checked liver US and shows mild fatty liver, no cirrhosis, otherwise normal Should improve with EtOH cessation -follow LFTs in AM encouraged EtOH cessation (6) DVT prophylaxis: Ambulation Dispo-continued stay, transfer to med/surg Admission and Anticipated Discharge Date Admission Date: June 17, 2020 Subjective Pt feels well, is anxious for discharge to rehab. No abd pain, no nausea. No CP/SOB Tele with NSR rates 70-100 Review of Systems Review of Systems: All systems reviewed & are unremarkable except as noted in HPI & below Physical Exam Constitutional: WD/WN, vitals as above Eyes: + anicteric sclerae Neck: trachea midline, no thyromegaly Respiratory: normal respiratory effort, lungs clear to auscultation Cardiovascular: RRR, no murmur, no edema Chest (Breasts): Chest: normal inspection of chest Gastrointestinal (Abdomen): normal bowel sounds, soft, nontender, no hepatosplenomegaly Musculoskeletal: Extremities: extremities normal to inspection; no cyanosis and no clubbing Skin: no rashes, warm and dry Neurologic: moves all extremities and awake; no focal motor deficits Psychiatric: A+Ox3, euthymic affect Lymphatic: no lymphedema Results & Data Results & Data ([facility]) Vital Signs (Past 12 Hours) Vital Signs Temp Pulse Pulse Resp BP Pulse Ox 06/20/20 15:32 89 06/20/20 15:17 36.5 C 93 H 16 126/83 96 06/20/20 12:00 36.9 C 93 H 18 120/78 98 06/20/20 07:27 36.7 C 72 18 115/78 98 06/20/20 07:07 69 06/20/20 04:49 84 06/20/20 03:56 36.5 C 73 18 111/73 96 Laboratory Results 06/20/20 06/20/20 Range/Units 07:01 07:01 WBC 5.98 (4.8-10.8) K/uL RBC 4.35 L (4.7-6.1) M/uL Hgb 14.0 (14.0-18.0) g/dL Hct 40.1 L (42-52) % MCV 92.2 (80-100) fL MCH 32.2 (25-34) pg MCHC 34.9 (32-36) g/dL RDW Std Deviation 44.2 (36.4-46.3) fL RDW Coeff of Bessie 13.0 (11.5-14.5) % Plt Count 161 (130-400) K/uL MPV 9.7 (7.4-10.4) fL Immature Gran % (Auto) 0.2 % Neut % (Auto) 53.7 % Lymph % (Auto) 27.4 % [place] % (Auto) 11.2 % Eos % (Auto) 7.2 % Baso % (Auto) 0.3 % Neut # (Auto) 3.21 (1.4-6.5) K/uL Lymph # (Auto) 1.64 (1.2-3.4) K/uL [place] # (Auto) 0.67 H (0.11-0.59) K/uL Eos # (Auto) 0.43 (0-0.5) K/uL Baso # (Auto) 0.02 (0-0.2) K/uL Immature Gran # (Auto) 0.01 (0.00-0.02) K/uL Sodium 139 (136-145) mmol/L Potassium 4.2 (3.5-5.1) mmol/L Chloride 104 (98-107) mmol/L Carbon Dioxide 31 (21-32) mmol/L Anion Gap 4.0 (3-11) BUN 12 (7-18) mg/dl Creatinine 0.86 (0.6-1.4) mg/dl Est Cr Clr Drug Dosing 134.1 ml/min Est GFR ( Amer) 132.1 Est GFR (Non-Af Amer) 113.9 BUN/Creatinine Ratio 13.5 (10-20) Glucose 85 (70-99) mg/dl Calcium 9.0 (8.5-10.1) mg/dl Phosphorus 3.4 (2.5-4.9) mg/dl Magnesium 2.0 (1.8-2.4) mg/dl Total Bilirubin 0.7 D (0.2-1) mg/dl AST 107 H (15-37) U/L ALT 110 H (12-78) U/L Alkaline Phosphatase 78 (45-117) U/L Total Protein 6.7 (6.4-8.2) gm/dl Albumin 3.4 (3.4-5.0) gm/dl Globulin 3.3 (2.5-4.0) gm/dl Albumin/Globulin Ratio 1.0 (0.9-2) Diagnostic Findings US liver CLINICAL HISTORY: elevated LFTs,EtOH abuse COMPARISON STUDY: No previous studies for comparison. FINDINGS: The liver is slightly echogenic. No hepatic lesions are identified. Liver is not cirrhotic by sonography. There is no biliary ductal dilatation. The common bile duct measures 4 mm in caliber. The gallbladder is normal. Pancreatic body is normal. Head and tail are partially obscured. There is no right hydronephrosis. IMPRESSION: Slight increased hepatic echogenicity. This may reflect fatty infiltration. Otherwise, unremarkable right upper quadrant ultrasound. PG Care Time/CCT Total # of Minutes Spent Total Time Spent with Patient: Total time spent is greater than 50% in coordination of care (as documented) at patient's floor/unit and/or counseling patient: Coding Level of Care Code 05801 Subseq Hosp Care Lvl 2 Diagnoses Chronic alcoholism F10.20 Alcohol withdrawal syndrome F10.230 Complication of substance-induced condition: uncomplicated Alcoholic intoxication F10.920 Complication of substance-induced condition: uncomplicated Hypophosphatemia E83.39 Alcoholic hepatitis K70.10 DVT prophylaxis Z29.9 (1) Alcohol withdrawal syndrome Complication of substance-induced condition: uncomplicated Qualified Code(s): F10.230 - Alcohol dependence with withdrawal, uncomplicated (2) Alcoholic intoxication Complication of substance-induced condition: uncomplicated Qualified Code(s): F10.920 - Alcohol use, unspecified with intoxication, uncomplicated
[2020-06-20] MEDS ORDERED: LORazepam 1 MG TAB PO PRN (15:46)
[2020-06-21 08:07] LABS: Albumin Level 3.4 gm/dl (3.4-5.0); BUN Creatinine Ratio 13.6 (10-20); Calcium 8.9 mg/dl (8.5-10.1); Est GFR (African American) 124.6; Est GFR (Non-African American) 107.5; Potassium 4.3 mmol/L (3.5-5.1)
[2020-06-21 08:10] LABS: Bilirubin Direct 0.2 mg/dl (0-0.2); Bilirubin,Total 0.6 mg/dl (0.2-1); Total Protein 6.7 gm/dl (6.4-8.2)
[2020-06-21] MEDS: NEPHROCAPS PO SCH (08:58)
[2020-06-21] MEDS: THIAMINE HCL 100 MG TAB PO SCH (08:58)
[2020-06-21] MEDS: FOLIC ACID 1 MG TAB PO SCH (08:58)
--- NOTE | 2020-06-21 10:49 | Discharge Summary ---
Date of Service June 21, 2020 Admission HPI Per Admitting Provider The patient is a 35-year-old male with a past medical history of alcohol abuse, with alcohol intoxication, who presents to the emergency department with concerns regarding alcohol cessation and avoiding potential side effect issues. He reports that his last drink was earlier in the day today. Work-up in the emergency department included the following abnormal laboratories: Serum osmolality 381, AST 51, alcohol level 344.9, COVID-19 negative test, and osmolality gap calculated at 3.63. Principal Diagnosis EtOH Dependence and withdrawal Alcoholic hepatitis Discharge Exam Constitutional WD/WN, vitals as above Eyes + anicteric sclerae Neck trachea midline, no thyromegaly Respiratory normal respiratory effort, lungs clear to auscultation Cardiovascular RRR, no murmur, no edema Chest (Breasts) Chest: normal inspection of chest Gastrointestinal (Abdomen) normal bowel sounds, soft, nontender, no hepatosplenomegaly Musculoskeletal Extremities: extremities normal to inspection; no cyanosis and no clubbing Skin no rashes, warm and dry Neurologic moves all extremities and awake; no focal motor deficits Psychiatric A+Ox3, euthymic affect Lymphatic no lymphedema Discharge Data Allergies Allergy/AdvReac Type Severity Reaction Status Date / Time nut - unspecified Allergy Unknown Unverified 06/17/20 19:59 Consultations 06/17/20 19:40 ED Decision to Admit Stat 06/17/20 22:10 Consult Case Management - Discharge Planning Routine 06/19/20 09:46 Consult Psychiatry Routine Ordered Studies 06/20/20 11:30 US liver Routine Hospital Course (1) Chronic alcoholism: Chronic alcoholism, alcohol intoxication, alcohol withdrawal syndrome- Last drink 06/17 in the evening. Has a h/o EtOH withdrawal symptoms of anxiety, sweats, but no seizure history Doing well, no signs of withdrawal, just some mild anxiety Was on AWSS protocol with gabapentin orally tapered down and completed course, and lorazepam was never needed Continue Thiamine 100 mg p.o. daily continue MVI 1 p.o. twice daily folic acid 1 mg p.o. daily Plan for dc to EtOH rehab facility today as is medically cleared (2) Alcohol withdrawal syndrome: See above (3) Alcoholic intoxication: See above, now resolved (4) Hypophosphatemia: Replaced (5) Alcoholic hepatitis: LFTs elevated -TBili now normal, AST and ALT up slightly--> checked liver US and shows mild fatty liver, no cirrhosis, otherwise normal Should improve with EtOH cessation No nausea or abdominal pain -follow LFTs in 1 week as outpt encouraged EtOH cessation (6) DVT prophylaxis: Ambulation Dispo-dc to Mother to drive to EtOH Rehab Total Time Total Time Spent Total Time Spent (In Minutes): 35 min Total Time Includes: Examination of the Patient, Discharge Planning and Medic ation Reconciliation Discharge Plan Discharge Items Patient Disposition: Drug & Alcohol Rehab Reason For Visit: ALCOHOL WITHDRAWAL Discharge Diagnosis: Alcohol dependence, alcoholic hepatitis Condition on Discharge: Good Activity: Resume your previous activity Non-emergency contact: Primary Care Provider Call non-emergency contact if: you have any medication questions and your symptoms worsen Follow-up/Referrals: PCP,NO [Primary Care Provider] - Diet: Regular Addtl Attending Provider Instructions: You were admitted due to alcohol dependence and withdrawal. You were treated with a taper of gabapentin and did well. Your liver function tests are still mildly elevated and this is from the heavy alcohol use. Please have your liver function tests repeated on lab work in 1 week to ensure they are returning to normal. You are medically cleared to go to alcohol rehab today. Best wishesEvangelina M.D. Pending Studies at Discharge: No Stand-Alone Forms: My [facility] Skilled Items Patient informed of condition?: Yes DNR: No Discharge Level of Care: Other Communicable Disease: No Discharge Prognosis: Improving Lines: None Urinary Catheter: No Medications and DC Order Prescriptions: New thiamine HCl (vitamin B1) [Vitamin B-1] 100 mg Tablet 100 mg PO QAM Qty: 30 RF: 0 folic acid 1 mg Tablet 1 mg PO QAM Qty: 30 RF: 0 multivitamin Tablet 1 tab PO DAILY Qty: 30 RF: 0 No Action No Known Home Medications RF: 0 Discharge Orders: Discharge Order (Routine); Ordered 06/21/20 Ordered By: Evangelina Yoon Admission Data Admit Date/Time: 06/17/20 20:38 Attending Provider: Evangelina Yoon Admit Provider: Pete Domingo Primary Care Provider: PCP,NO Other Providers: Pete Domingo ; Johana Huston Other Interventions: Discharge Summary Assessment (RN) Last Done: 06/21/20 10:13 Coding Level of Care Code D/C Day Management >30 mins Diagnoses Chronic alcoholism F10.20 Alcohol withdrawal syndrome F10.230 Complication of substance-induced condition: uncomplicated Alcoholic intoxication F10.920 Complication of substance-induced condition: uncomplicated Hypophosphatemia E83.39 Alcoholic hepatitis K70.10 DVT prophylaxis Z29.9
[2020-06-21] MEDS ORDERED: GABAPENTIN 600 MG TAB PO SCH (12:00)
== END 2020-06-21 11:26 | disposition alcohol treatment (31) | DRG 897 ==
LOC: ED 17:04 → SUATTDRO 20:38 → 2S 20:38 → 2W 06-19 13:10